=== PATIENT | female | born 1975 | race American Indian/Alaskan Native ===

== ENCOUNTER 2021-05-19 22:39 | Emergency (ER) | payer MEDICAID ==
[2021-05-19 22:57] VITALS: BP 125/81
--- NOTE | 2021-05-20 00:05 | Emergency Department Report ---
ED General Adult HPI - General Chief complaint: Upper Respiratory Infection Stated complaint: COUGH Time Seen by Provider: 05/19/21 22:57 Source: patient Mode of arrival: Ambulatory Limitations: No Limitations - History of Present Illness Initial comments: 45-year-old -[place] female patient presents with complaints of cough x4 days. She denies any hemoptysis, shortness of breath, loss of taste/smell, recent travel/surgeries, leg pain/swelling, hormone use, or history of DVT/PE. She has received her COVID-19 vaccinations. Patient states OTC medications or not helping. She admits the pain in the chest with coughing only. Patient is a chronic smoker and states she has history of recurrent bronchitis. Inhalers and nebulizers are not helping per patient. - Related Data Previous Rx's Medication Instructions Recorded Last Taken Type Azithromycin [Zithromax Z-LAUREN] 0 mg PO DAILY 5 Days #6 tab 05/20/21 Unknown Rx Benzonatate 200 mg PO TID PRN #30 capsule 05/20/21 Unknown Rx Prednisone [predniSONE 10 mg 10 mg PO .TAPER #1 tab.ds.pk 05/20/21 Unknown Rx (6-Day Pack, 21 Tabs)] Allergies Allergy/AdvReac Type Severity Reaction Status Date / Time Penicillins Allergy Unknown Verified 05/20/21 01:32 ED Review of Systems ROS: Stated complaint: COUGH Other details as noted in HPI Constitutional: denies: chills, diaphoresis, fever, malaise, weakness Respiratory: cough. denies: shortness of breath Cardiovascular: as per HPI Gastrointestinal: denies: abdominal pain, nausea, vomiting Skin: denies: change in color ED Past Medical Hx - Past Medical History Previous Medical History?: No - Surgical History Past Surgical History?: No - Medications Home Medications: Home Medications Medication Instructions Recorded Confirmed Last Taken Type Azithromycin [Zithromax Z-LAUREN] 0 mg PO DAILY 5 Days #6 tab 05/20/21 Unknown Rx Benzonatate 200 mg PO TID PRN #30 capsule 05/20/21 Unknown Rx Prednisone [predniSONE 10 mg 10 mg PO .TAPER #1 tab.ds.pk 05/20/21 Unknown Rx (6-Day Pack, 21 Tabs)] ED Physical Exam - General Limitations: No Limitations General appearance: alert, in no apparent distress - Head Head exam: Present: atraumatic, normocephalic - Eye Eye exam: Present: normal appearance - Respiratory Respiratory exam: Present: rhonchi (Left mid/lower lung rico). Absent: respiratory distress, wheezes - Cardiovascular Cardiovascular Exam: Present: regular rate, normal rhythm - Extremities Exam Extremities exam: Absent: calf tenderness (No swelling or pain noted bilaterally) ED Course Vital Signs 05/19/21 05/20/21 22:51 01:50 Temperature 98.8 F Pulse Rate 99 H 90 Respiratory 18 Rate Blood Pressure 125/81 O2 Sat by Pulse 97 Oximetry ED Medical Decision Making - Radiology Data Radiology results: report reviewed XR chest routine 2V INDICATION / CLINICAL INFORMATION: cough, L lung rhonchi. COMPARISON: None available. FINDINGS: SUPPORT DEVICES: None. HEART /PULMONARY VASCULATURE: No significant abnormality. LUNGS / PLEURA: No significant pulmonary or pleural abnormality. No pneumothorax. ADDITIONAL FINDINGS: No significant additional findings. IMPRESSION: 1. No acute findings. - Medical Decision Making 45-year-old -[place] female patient presents with complaints of cough x4 days. She denies any hemoptysis, shortness of breath, loss of taste/smell, recent travel/surgeries, leg pain/swelling, hormone use, or history of DVT/PE. She has received her COVID-19 vaccinations. Patient states OTC medications or not helping. She admits the pain in the chest with coughing only. Patient is a chronic smoker and states she has history of recurrent bronchitis. Inhalers and nebulizers are not helping per patient. Rhonchi noted in left lung field on exam. X-rays negative for any acute abnormalities. Given patient's smoking history and history of recurrent bacterial bronchitis, will treat as such with Z-Lauren. She is to follow-up with her primary care doctor in 3 to 5 days. Discussed in detail signs and symptoms that should prompt immediate return to the ED with patient who verbalized understanding. Her vitals are normal, she is nontoxic-appearing, she is stable for discharge home. Critical care attestation.: If time is entered above; I have spent that time in minutes in the direct care of this critically ill patient, excluding procedure time. ED Disposition Clinical Impression: Acute bacterial bronchitis Disposition: HOME / SELF CARE / HOMELESS Is pt being admited?: No Condition: Stable Instructions: Acute Bronchitis, Adult, [id number], Acute Bronchitis (ED) Prescriptions: Benzonatate 200 mg PO TID PRN #30 capsule PRN Reason: Cough Prednisone [predniSONE 10 mg (6-Day Pack, 21 Tabs)] 10 mg PO .TAPER #1 tab.ds.pk Azithromycin [Zithromax Z-LAUREN] 0 mg PO DAILY 5 Days #6 tab Referrals: PRIMARY CARE, [Referring] - 3-5 Days Forms: Work/School Release Form(ED)
--- NOTE | 2021-05-20 00:19 | XRay Report ---
XR chest routine 2V INDICATION / CLINICAL INFORMATION: cough, L lung rhonchi. COMPARISON: None available. FINDINGS: SUPPORT DEVICES: None. HEART /PULMONARY VASCULATURE: No significant abnormality. LUNGS / PLEURA: No significant pulmonary or pleural abnormality. No pneumothorax. ADDITIONAL FINDINGS: No significant additional findings. IMPRESSION: 1. No acute findings. Signer Name: Prudencio Benjamin MD Signed: 05/20/2021 12:15 AM Workstation Name: [id number]
[2021-05-20] MEDS ORDERED: guaiFENesin/CODEINE 100-10MG ORAL LIQD 5 ML PO ONE (01:23)
[2021-05-20] MEDS ORDERED: predniSONE 20 MG TAB PO NR (02:00)
== END 2021-05-20 01:50 | disposition home or self-care (01) ==
LOC: ED 22:39
DX: J20.9 Acute bronchitis, unspecified (principal); Z88.0 Allergy status to penicillin
CPT/HCPCS: 71046; 99283; J7512